=== PATIENT | female | born 1945 | race Hispanic/Latino ===

== ENCOUNTER → 2019-04-01 | Outpatient (CLI) | payer OTHER ==
[~2019-04-01] MED LIST: DIAZ5TAB4 PO; LEVO50 PO; LISI10TA7 PO; TRAM50TA4 PO
== END | disposition home or self-care (01) ==
LOC: RAH 10:13
PROVIDERS: ATTEND Internal Medicine
DX: M25.552 Pain in left hip (principal)
CPT/HCPCS: 73502

== ENCOUNTER 2023-02-07 12:37 | Emergency (ER) | payer OTHER ==
[~2023-02-07] VITALS: Ht 154.9 cm; Wt 56.7 kg
[~2023-02-07 12:37] MED LIST changes: -ONDA4TAB10 PO
[2023-02-07] MEDS ORDERED: ONDANSETRON 4MG INJ IVP ONE (13:00)
[2023-02-07] MEDS ORDERED: 0.9%NACL 1000ML 1,000 ML IV ONE (13:00)
[2023-02-07 13:47] LABS: APPEARANCE,URINE CLEAR (CLEAR); BILIRUBIN,URINE NEGATIVE (NEGATIVE); COLOR,URINE COLORLESS (YELLOW); GLUCOSE, URINE (UA) NEGATIVE (NEGATIVE); KETONES,URINE NEGATIVE (NEGATIVE); LEUKOCYTE ESTERASE ,URINE NEGATIVE Leu/uL (NEGATIVE); NITRATE,URINE NEGATIVE (NEGATIVE); OCCULT BLOOD,URINE LARGE (NEGATIVE); PROTEIN,URINE NEGATIVE (NEGATIVE); UROBILINOGEN,URINE 0.2 mg/dL (0.2-1.0)
[2023-02-07 13:53] LABS: BASOPHILS % (AUTO) 0.4 % (0.0-5.0); EOSINOPHILS % (AUTO) 1.3 % (0.0-8.0); HEMATOCRIT 42.1 % (36-48); LYMPHOCYTES % (AUTO) 13.1 % (21.0-51.0); MEAN CORPUSCULAR HEMOGLOBIN 30.7 pg (27.0-33.0); MEAN CORPUSCULAR HGB CONC 34.2 g/dL (32.0-36.0); MEAN CORPUSCULAR VOLUME 89.8 fL (79-99); MONOCYTES % (AUTO) 3.8 % (3.0-13.0); PLATELET COUNT (AUTO) 175 K/uL (130-400); RED BLOOD CELL COUNT(AUTO) 4.69 MIL/uL (4.00-5.50); RED CELL DISTRIBUTION WIDTH 12.7 % (11.0-15.5); WHITE BLOOD COUNT (AUTO) 9.3 K/uL (4.8-10.8)
[2023-02-07 14:04] LABS: CREATININE 0.8 mg/dL (0.5-1.5); POTASSIUM 3.5 mmol/L (3.5-5.1)
[2023-02-07 14:09] LABS: MUCUS,URINE RARE LPF (None Seen); SQUAMOUS EPITHELIAL CELL,UR RARE /HPF (0-2)
[2023-02-07 14:16] LABS: THYROID STIMULATING HORMONE 2.26 uIU/mL (0.36-3.74); TOTAL PROTEIN, SERUM 7.3 g/dL (6.0-8.3)
[2023-02-07 14:34] VITALS: BP 153/67
[2023-02-07] MEDS ORDERED: ONDA4TAB10 PO (14:47)
== END 2023-02-07 15:18 | disposition home or self-care (01) ==
LOC: EDH 12:37
DX: R11.2 Nausea with vomiting, unspecified (principal); E86.0 Dehydration; I10 Essential (primary) hypertension; Z88.8 Allergy status to other drugs, medicaments and biological substances; Z79.899 Other long term (current) drug therapy
CPT/HCPCS: 99285; 96374; 71045; 96361; 82150; 84443; 84484; 80053; 83690; 85025; 81001; 36415; 76536; 93005; J7030; J2405

== ENCOUNTER → 2023-02-07 | Outpatient (CLI) | payer OTHER ==
[~2023-02-07] MED LIST changes: +LISI10TA24 PO; -LISI10TA7 PO; +ONDA4TAB10 PO
== END | disposition home or self-care (01) ==
LOC: RAH 10:36
PROVIDERS: ATTEND Internal Medicine
DX: E03.9 Hypothyroidism, unspecified (principal); R09.89 Other specified symptoms and signs involving the circulatory and respiratory systems; R07.0 Pain in throat
CPT/HCPCS: 76536

== ENCOUNTER → 2023-03-05 | Outpatient (CLI) | payer OTHER ==
[~2023-03-05] MED LIST changes: +ONDA4TAB10 PO
== END | disposition home or self-care (01) ==
LOC: RAH 07:53
PROVIDERS: ATTEND Internal Medicine
DX: K22.2 Esophageal obstruction (principal); R13.10 Dysphagia, unspecified
CPT/HCPCS: 74230; 92611

== ENCOUNTER → 2023-04-26 | Outpatient (CLI) | payer OTHER ==
[~2023-04-26] MED LIST changes: +IOHEXOL-350 50ML VIAL IV ONE
== END | disposition home or self-care (01) ==
LOC: RAH 10:26
PROVIDERS: ATTEND Internal Medicine
DX: I67.82 Cerebral ischemia (principal); G45.9 Transient cerebral ischemic attack, unspecified
CPT/HCPCS: 70470; Q9967

== ENCOUNTER → 2023-05-04 | Outpatient (CLI) | payer OTHER ==
[~2023-05-04] MED LIST changes: -IOHEXOL-350 50ML VIAL IV ONE
[2023-05-04 12:42] LABS: ALBUMIN 3.8 g/dL (3.5-5.0); CREATININE 0.9 mg/dL (0.5-1.5); POTASSIUM 4.2 mmol/L (3.5-5.1); TOTAL PROTEIN, SERUM 7.2 g/dL (6.0-8.3)
== END | disposition home or self-care (01) ==
LOC: LAB 08:09
PROVIDERS: ATTEND Student in an Organized Health Care Education/Training Program
DX: I45.10 Unspecified right bundle-branch block (principal)
CPT/HCPCS: 36415; 80053

== ENCOUNTER → 2023-05-08 | Outpatient (CLI) | payer OTHER ==
[~2023-05-08] MED LIST changes: +IOHEXOL-350 75 ML VIAL IV ONE
== END | disposition home or self-care (01) ==
LOC: RAH 08:02
PROVIDERS: ATTEND Student in an Organized Health Care Education/Training Program
DX: I65.23 Occlusion and stenosis of bilateral carotid arteries (principal)
CPT/HCPCS: 70498; Q9967

== ENCOUNTER → 2023-05-31 | Outpatient (CLI) | payer OTHER ==
[~2023-05-31] MED LIST changes: -IOHEXOL-350 75 ML VIAL IV ONE
[2023-05-31 12:45] LABS: CREATININE 0.9 mg/dL (0.5-1.5); POTASSIUM 4.1 mmol/L (3.5-5.1)
== END | disposition home or self-care (01) ==
LOC: LAB 09:46
PROVIDERS: ATTEND Student in an Organized Health Care Education/Training Program
DX: R07.9 Chest pain, unspecified (principal)
CPT/HCPCS: 36415; 80048

== ENCOUNTER → 2023-06-07 | Outpatient (CLI) | payer OTHER ==
[~2023-06-07] MED LIST changes: +IOHEXOL 350 MG/ML 100ML INFUS..BTL IV ONE; +METOPROLOL TARTRATE 1 MG/ML 5ML VIAL IV ONE
== END | disposition home or self-care (01) ==
LOC: RAH 09:34
PROVIDERS: ATTEND Student in an Organized Health Care Education/Training Program
DX: R07.9 Chest pain, unspecified (principal)
CPT/HCPCS: 75574; J3490; Q9967

== ENCOUNTER → 2023-08-31 | Outpatient (CLI) | payer OTHER ==
[~2023-08-31] MED LIST changes: +ALBU0.63 IH; +AMLO-257 PO; +ASPI-1197 PO; +ATOR10TA69 PO; +BUSP5TAB3 PO; +CLOP75TA32 PO; -DIAZ5TAB4 PO; +DIPH25TA18 PO; -IOHEXOL 350 MG/ML 100ML INFUS..BTL IV ONE; -LISI10TA24 PO; +LORA10TA7 PO; +LOSA50TA64 PO; -METOPROLOL TARTRATE 1 MG/ML 5ML VIAL IV ONE; -ONDA4TAB10 PO; +PANT20TA18 PO; +PRED20TA3 PO; -TRAM50TA4 PO
== END | disposition home or self-care (01) ==
LOC: RAH 09:16
PROVIDERS: ATTEND Internal Medicine
DX: N20.0 Calculus of kidney (principal); M47.815 Spondylosis without myelopathy or radiculopathy, thoracolumbar region; R31.29 Other microscopic hematuria; R94.4 Abnormal results of kidney function studies; E27.8 Other specified disorders of adrenal gland; N13.30 Unspecified hydronephrosis; I70.0 Atherosclerosis of aorta
CPT/HCPCS: 74176

== ENCOUNTER 2023-10-18 07:49 | Day surgery (SDC) | payer OTHER ==
[2023-10-15 11:18] VITALS: BP 176/89; PULSE 61; RESP 16
[2023-10-15 11:39] LABS: BASOPHILS # (AUTO) 0.05 K/uL (0.00-0.20); BASOPHILS % (AUTO) 0.8 % (0.0-5.0); EOSINOPHILS # (AUTO) 0.49 K/uL (0.00-0.70); EOSINOPHILS % (AUTO) 7.4 % (0.0-8.0); HEMATOCRIT 43.5 % (36-48); IMMATURE GRANULOCYTE ABSOLUTE 0.02 K/uL (0-1); LYMPHOCYTES # (AUTO) 1.7 K/uL (1.0-4.8); LYMPHOCYTES % (AUTO) 25.2 % (21.0-51.0); MEAN CORPUSCULAR HEMOGLOBIN 30.8 pg (27.0-33.0); MEAN CORPUSCULAR HGB CONC 33.6 g/dL (32.0-36.0); MEAN CORPUSCULAR VOLUME 91.8 fL (79-99); MONOCYTES # (AUTO) 0.6 K/uL (0.1-1.0); MONOCYTES % (AUTO) 9.4 % (3.0-13.0); NEUTROPHILS # (AUTO) 3.8 K/uL (1.8-7.7); NEUTROPHILS % (AUTO) 56.9 % (40.0-77.0); PLATELET COUNT (AUTO) 177 K/uL (130-400); RED BLOOD CELL COUNT(AUTO) 4.74 MIL/uL (4.00-5.50); RED CELL DISTRIBUTION WIDTH 12.3 % (11.0-15.5); WHITE BLOOD COUNT (AUTO) 6.6 K/uL (4.8-10.8)
[2023-10-15 11:58] LABS: CREATININE 0.8 mg/dL (0.5-1.5)
[2023-10-15 12:00] LABS: INR < 0.93 (0.85-1.15); PROTHROMBIN TIME 10.7 SEC (9.6-11.6)
[2023-10-15 12:02] LABS: PARTIAL THROMBOPLASTIN TIME 28.8 SEC (26.3-35.5)
[2023-10-15 12:54] LABS: APPEARANCE,URINE CLOUDY (CLEAR); BILIRUBIN,URINE NEGATIVE (NEGATIVE); COLOR,URINE YELLOW (YELLOW); GLUCOSE, URINE (UA) NEGATIVE (NEGATIVE); KETONES,URINE NEGATIVE (NEGATIVE); LEUKOCYTE ESTERASE ,URINE 250 Leu/uL (NEGATIVE); NITRATE,URINE NEGATIVE (NEGATIVE); OCCULT BLOOD,URINE LARGE (NEGATIVE); PROTEIN,URINE 50 mg/dL (NEGATIVE); UROBILINOGEN,URINE 0.2 mg/dL (0.2-1.0)
[2023-10-15 12:55] LABS: ADD UA MICROSCOPIC YES
[2023-10-15 13:10] LABS: MUCUS,URINE RARE LPF (None Seen); NON-SQUAMOUS EPITHELIAL CELL 4 /HPF (0-2); RBC,URINE TNTC /HPF (0-1); SQUAMOUS EPITHELIAL CELL,UR FEW /HPF (0-2); WBC,URINE 26-50 /HPF (0-1)
[2023-10-18] VITALS (16 sets, daily range): BP systolic 127–162; BP diastolic 55–83; PULSE 67–79; RESP 14–17
[~2023-10-18] VITALS: Ht 154.9 cm; Wt 55.6 kg
[~2023-10-18 07:49] MED LIST changes: -DIPH25TA18 PO; +FLUT1BLS3 IH; -PRED20TA3 PO
[2023-10-18] MEDS ORDERED: IOHEXOL-350 50ML VIAL IV ONE (08:15)
[2023-10-18] MEDS ORDERED: LACTATED RINGERS 1000ML 1,000 ML IV ONE (08:28)
[2023-10-18] MEDS: CEFTRIAXONE 1G VIAL ONE ×2 (08:51→09:29)
[2023-10-18] MEDS ORDERED: DEXAMETHASONE SOD PHOSPHATE 10MG/ML 1ML VIAL ONE (09:28)
[2023-10-18] MEDS ORDERED: LIDOCAINE PF 100MG/5ML (2%) SYRINGE 5ML ONE ×2 (09:28→09:30)
[2023-10-18] MEDS ORDERED: SUCCINYLCHOLINE 200MG/10ML SYR ONE (09:28)
[2023-10-18] MEDS ORDERED: PROPOFOL 10 MG/ML 20ML VIAL IV ONE (09:29)
[2023-10-18] MEDS ORDERED: GLYCOPYRROLATE 1 MG/5 ML SYRINGE ONE (09:29)
[2023-10-18] MEDS ORDERED: ROCURONIUM 10MG/1ML SYR 10 MG/ML ML ONE (09:29)
[2023-10-18] MEDS ORDERED: NEOSTIGMINE 5MG/5ML SYR IV ONE (09:29)
[2023-10-18] MEDS ORDERED: METOPROLOL TARTRATE 1 MG/ML 5ML VIAL IV ONE (09:36)
[2023-10-18] MEDS ORDERED: FENTANYL CITRATE PF 50 MCG/1 ML 2ML VIAL ONE (09:39)
== END 2023-10-18 13:10 | disposition home or self-care (01) ==
LOC: DAH 07:49
PROVIDERS: ATTEND Urology
DX: N20.0 Calculus of kidney (principal); I10 Essential (primary) hypertension; E03.9 Hypothyroidism, unspecified; F32.A Depression, unspecified; I45.10 Unspecified right bundle-branch block; I49.1 Atrial premature depolarization; Z90.49 Acquired absence of other specified parts of digestive tract; Z98.890 Other specified postprocedural states; Z79.01 Long term (current) use of anticoagulants; Z90.5 Acquired absence of kidney
CPT/HCPCS: 80048; 85025; 85610; 85730; 87088; 81001; 36415; 74018; 71045; 93005; 52356; 74420; A6260; A4663; J7120 ×2; C1758; C1894; C2617; J3010; J3490 ×2; J0330; J1100; J2710; J2001 ×2; J0696; J2704; Q9967; A6204; A4358; C1769 ×3; A4930; A4215; A4223; A4222; A4221; A4600

== ENCOUNTER → 2024-02-11 | Outpatient (CLI) | payer OTHER ==
[~2024-02-11] MED LIST changes: +FLUT9.9S16 NS; +LEVO750T68 PO; +PANT40TA PO
[2024-02-11 12:33] LABS: HEMOGLOBIN A1C 5.7 % (4.0-6.0)
[2024-02-11 12:39] LABS: CHOLESTEROL 155 mg/dL (<200); HDL CHOLESTEROL 45 mg/dL (35-85); LDL DIRECT 93 mg/dL (0-99); TRIGLYCERIDES 140 mg/dL (30-200)
== END | disposition home or self-care (01) ==
LOC: LAB 08:02
PROVIDERS: ATTEND Student in an Organized Health Care Education/Training Program
DX: I10 Essential (primary) hypertension (principal); I65.23 Occlusion and stenosis of bilateral carotid arteries; Z79.899 Other long term (current) drug therapy
CPT/HCPCS: 36415; 80061; 83036

== ENCOUNTER 2024-04-04 19:31 | Observation (INO) | payer OTHER ==
[~2024-04-04] VITALS: Ht 154.9 cm; Wt 56.6 kg
[~2024-04-04 19:31] MED LIST changes: -FLUT9.9S16 NS; -LEVO750T68 PO; -PANT40TA PO
[2024-04-04] MEDS ORDERED: BUSP5TAB3 PO (19:47)
[2024-04-04] MEDS: FAMOTIDINE 20MG VIAL IV ONE (19:57)
[2024-04-04] MEDS: ONDANSETRON 4MG INJ IVP ONE (19:57)
[2024-04-04 20:08] LABS: BASOPHILS # (AUTO) 0.05 K/uL (0.00-0.20); BASOPHILS % (AUTO) 0.6 % (0.0-5.0); EOSINOPHILS # (AUTO) 0.36 K/uL (0.00-0.70); EOSINOPHILS % (AUTO) 4.1 % (0.0-8.0); HEMATOCRIT 41.5 % (36-48); IMMATURE GRANULOCYTE ABSOLUTE 0.03 K/uL (0-1); LYMPHOCYTES # (AUTO) 1.8 K/uL (1.0-4.8); LYMPHOCYTES % (AUTO) 20.9 % (21.0-51.0); MEAN CORPUSCULAR HEMOGLOBIN 30.1 pg (27.0-33.0); MEAN CORPUSCULAR HGB CONC 34.9 g/dL (32.0-36.0); MEAN CORPUSCULAR VOLUME 86.1 fL (79-99); MONOCYTES # (AUTO) 0.5 K/uL (0.1-1.0); MONOCYTES % (AUTO) 5.6 % (3.0-13.0); NEUTROPHILS % (AUTO) 68.5 % (40.0-77.0); PLATELET COUNT (AUTO) 173 K/uL (130-400); RED BLOOD CELL COUNT(AUTO) 4.82 MIL/uL (4.00-5.50); RED CELL DISTRIBUTION WIDTH 12.5 % (11.0-15.5); WHITE BLOOD COUNT (AUTO) 8.7 K/uL (4.8-10.8)
[2024-04-04 20:17] LABS: INR <= 0.93 (0.85-1.15); PROTHROMBIN TIME 10.2 SEC (9.6-11.6)
[2024-04-04 20:19] LABS: PARTIAL THROMBOPLASTIN TIME 24.2 SEC (26.3-35.5)
[2024-04-04] MEDS: 0.9%NACL 1000ML 1,000 ML IV ONE (20:26)
[2024-04-04 20:30] LABS: BILIRUBIN,TOTAL 0.3 mg/dL (0.2-1.0); CREATININE 0.9 mg/dL (0.5-1.0); POTASSIUM 3.3 mmol/L (3.5-5.1)
[2024-04-04] MEDS: HYDRALAZINE 20MG/ML VIAL IV ONE (20:44)
[2024-04-04 20:48] LABS: APPEARANCE,URINE CLEAR (CLEAR); BACTERIA,URINE RARE /HPF (None Seen); BILIRUBIN,URINE NEGATIVE (NEGATIVE); COLOR,URINE COLORLESS (YELLOW); GLUCOSE, URINE (UA) NEGATIVE (NEGATIVE); KETONES,URINE NEGATIVE (NEGATIVE); LEUKOCYTE ESTERASE ,URINE 75 Leu/uL (NEGATIVE); MUCUS,URINE RARE LPF (None Seen); NITRATE,URINE NEGATIVE (NEGATIVE); OCCULT BLOOD,URINE NEGATIVE (NEGATIVE); PH,URINE 6.5 (5.0-8.0); PROTEIN,URINE 10 mg/dL (NEGATIVE); SQUAMOUS EPITHELIAL CELL,UR RARE /HPF (0-2); UROBILINOGEN,URINE 0.2 mg/dL (0.2-1.0)
[2024-04-04] MEDS: AZTREONAM 1 GM VIAL IVPB SCH (21:51)
[2024-04-04 23:25] VITALS: PULSE 87; RESP 19; O2SAT 98
[2024-04-04] MEDS ORDERED: ACETAMINOPHEN 650 MG SUPPOSITORY RC PRN (23:30)
[2024-04-04] MEDS ORDERED: ALBUTEROL 0.083% 2.5 MG/3 ML INH IH PRN (23:30)
[2024-04-04] MEDS ORDERED: ONDANSETRON 4MG INJ IVP PRN (23:30)
[2024-04-04] MEDS ORDERED: HYDRALAZINE 20MG/ML VIAL IV PRN (23:30)
[2024-04-04] MEDS: LACTATED RINGERS 1000ML 1,000 ML IV SCH (23:35)
[2024-04-05] VITALS (12 sets, daily range): BP systolic 134–175; BP diastolic 61–88; PULSE 75–98; RESP 18–21; O2SAT 90–98
[2024-04-05] MEDS ORDERED: FLUT9.9S16 NS (01:07)
[2024-04-05] MEDS: ACETAMINOPHEN 325 MG TAB PO PRN (01:47)
[2024-04-05 05:47] LABS: BASOPHILS # (AUTO) 0.04 K/uL (0.00-0.20); BASOPHILS % (AUTO) 0.5 % (0.0-5.0); EOSINOPHILS # (AUTO) 0.19 K/uL (0.00-0.70); EOSINOPHILS % (AUTO) 2.2 % (0.0-8.0); HEMATOCRIT 39.5 % (36-48); IMMATURE GRANULOCYTE ABSOLUTE 0.03 K/uL (0-1); LYMPHOCYTES # (AUTO) 2.1 K/uL (1.0-4.8); LYMPHOCYTES % (AUTO) 24.8 % (21.0-51.0); MEAN CORPUSCULAR HEMOGLOBIN 30.2 pg (27.0-33.0); MEAN CORPUSCULAR HGB CONC 34.9 g/dL (32.0-36.0); MEAN CORPUSCULAR VOLUME 86.4 fL (79-99); MONOCYTES # (AUTO) 0.6 K/uL (0.1-1.0); MONOCYTES % (AUTO) 7.5 % (3.0-13.0); NEUTROPHILS # (AUTO) 5.5 K/uL (1.8-7.7); NEUTROPHILS % (AUTO) 64.6 % (40.0-77.0); PLATELET COUNT (AUTO) 162 K/uL (130-400); RED BLOOD CELL COUNT(AUTO) 4.57 MIL/uL (4.00-5.50); RED CELL DISTRIBUTION WIDTH 12.6 % (11.0-15.5); WHITE BLOOD COUNT (AUTO) 8.5 K/uL (4.8-10.8)
[2024-04-05 06:20] LABS: CREATININE 0.9 mg/dL (0.5-1.0); POTASSIUM 3.7 mmol/L (3.5-5.1)
[2024-04-05] MEDS: DOCUSATE SODIUM 100 MG CAP PO SCH (09:26)
[2024-04-05] MEDS: FAMOTIDINE 20MG TAB PO SCH (09:26)
[2024-04-05] MEDS: ENOXAPARIN SODIUM 40 MG/0.4 ML SYRINGE SQ SCH (09:27)
[2024-04-05] MEDS: LEVOFLOXACIN 750 MG/D5W 150ML BAG IV SCH (09:27)
[2024-04-05] MEDS ORDERED: LORATADINE 10 MG TABLET PO PRN (17:30)
[2024-04-05] MEDS: LOSARTAN 50 MG TABLET PO ONE (17:53)
[2024-04-05] MEDS: AMLODIPINE 5 MG TAB PO ONE (17:53)
[2024-04-05] MEDS ORDERED: ALBUTEROL 0.042% 1.25MG/3ML IH PRN (18:00)
[2024-04-05] MEDS ORDERED: (Fluticasone/Umeclidin/Vilanter (Trelegy Ellipta 100-62.5- IH PRN (18:00)
[2024-04-05] MEDS: LOSARTAN 50 MG TABLET PO SCH (20:20)
[2024-04-05] MEDS: ATORVASTATIN 10 MG TABLET PO SCH (20:20)
[2024-04-05] MEDS: BUSPIRONE HCL 5 MG TABLET PO SCH (20:21)
[2024-04-05] MEDS: ASPIRIN 81MG CHEW TAB PO SCH (20:21)
[2024-04-05] MEDS: FLUTICASONE FUROATE NASAL SCH (20:22)
[2024-04-06] VITALS: BP 147/72; PULSE 83; RESP 18
[2024-04-06 04:00] VITALS: BP 150/65; PULSE 77; RESP 17
[2024-04-06 05:45] LABS: BASOPHILS # (AUTO) 0.04 K/uL (0.00-0.20); BASOPHILS % (AUTO) 0.5 % (0.0-5.0); EOSINOPHILS # (AUTO) 0.37 K/uL (0.00-0.70); HEMATOCRIT 37.4 % (36-48); IMMATURE GRANULOCYTE ABSOLUTE 0.02 K/uL (0-1); LYMPHOCYTES # (AUTO) 2.3 K/uL (1.0-4.8); LYMPHOCYTES % (AUTO) 31.1 % (21.0-51.0); MEAN CORPUSCULAR HEMOGLOBIN 30.4 pg (27.0-33.0); MEAN CORPUSCULAR HGB CONC 34.5 g/dL (32.0-36.0); MONOCYTES # (AUTO) 0.6 K/uL (0.1-1.0); MONOCYTES % (AUTO) 8.1 % (3.0-13.0); NEUTROPHILS # (AUTO) 4.1 K/uL (1.8-7.7); PLATELET COUNT (AUTO) 169 K/uL (130-400); RED BLOOD CELL COUNT(AUTO) 4.25 MIL/uL (4.00-5.50); RED CELL DISTRIBUTION WIDTH 12.8 % (11.0-15.5); WHITE BLOOD COUNT (AUTO) 7.4 K/uL (4.8-10.8)
[2024-04-06] MEDS: LEVOTHYROXINE 25 MCG TABLET PO SCH (05:45)
[2024-04-06 06:02] LABS: CREATININE 0.9 mg/dL (0.5-1.0); POTASSIUM 3.8 mmol/L (3.5-5.1)
[2024-04-06] MEDS ORDERED: PANT40TA PO (06:59)
[2024-04-06] MEDS ORDERED: LEVO750T68 PO (06:59)
[2024-04-06 07:22] VITALS: PULSE 79; RESP 19; O2SAT 96
[2024-04-06 08:08] VITALS: BP 167/82; PULSE 68; RESP 18
[2024-04-06 09:00] VITALS: O2SAT 99
[2024-04-06] MEDS: PANTOPRAZOLE 40 MG TAB DR PO SCH (09:00)
[2024-04-06] MEDS ORDERED: NON-FORMULARY MEDICATION 1 EACH (Pantoprazole Sodium 20 MG) PO SCH (09:00)
[2024-04-06 10:30] VITALS: BP 132/59; PULSE 78; RESP 17
[2024-04-06] MEDS ORDERED: AMLODIPINE 5 MG TAB PO SCH (12:00)
== END 2024-04-06 11:07 | disposition home or self-care (01) ==
LOC: EDH 19:31 → EDHIP 23:04 → 3BH 04-05 00:33
PROVIDERS: ADMIT Internal Medicine Critical Care Medicine; ATTEND Internal Medicine Critical Care Medicine
DX: A41.9 Sepsis, unspecified organism (principal); N30.00 Acute cystitis without hematuria; R73.9 Hyperglycemia, unspecified; E87.6 Hypokalemia; E87.20 Acidosis, unspecified; E78.5 Hyperlipidemia, unspecified; R11.2 Nausea with vomiting, unspecified; I25.10 Atherosclerotic heart disease of native coronary artery without angina pectoris; I10 Essential (primary) hypertension; Z86.73 Personal history of transient ischemic attack (TIA), and cerebral infarction without residual deficits; Z88.5 Allergy status to narcotic agent; Z88.8 Allergy status to other drugs, medicaments and biological substances; Z85.528 Personal history of other malignant neoplasm of kidney; Z90.49 Acquired absence of other specified parts of digestive tract
CPT/HCPCS: 96361 ×5; 96365; 96375; 99285; 84484; 80053; 83690; 85025 ×3; 85610; 85730; 87088; 83605 ×2; 81001 ×2; 36415 ×3; 71045; 70450; 74176; 93005; 94664; 84145 ×2; 96372 ×2; 96366 ×2; 96367; 80048 ×2; 82948 ×6; 97161; 97116; 97530 ×2; G0378 ×35; J3490 ×2; J7030; J0360; J2405; J7120; J1956 ×2; J1650 ×2; G8980-CI; G8983-CI

== ENCOUNTER → 2024-06-17 | Outpatient (CLI) | payer OTHER ==
[~2024-06-17] MED LIST changes: -CLOP75TA32 PO; +FLUT9.9S16 NS; +LEVO750T68 PO; +PANT40TA PO
== END | disposition home or self-care (01) ==
LOC: RAH 09:59
PROVIDERS: ATTEND Internal Medicine
DX: M85.89 Other specified disorders of bone density and structure, multiple sites (principal); Z78.0 Asymptomatic menopausal state
CPT/HCPCS: 77080

== ENCOUNTER → 2024-09-18 | Outpatient (CLI) | payer OTHER ==
[2024-09-18 12:36] LABS: HEMOGLOBIN A1C 5.6 % (4.0-6.0)
[2024-09-18 12:47] LABS: ALBUMIN 3.8 g/dL (3.5-5.0); BILIRUBIN,TOTAL 0.4 mg/dL (0.2-1.0); CREATININE 0.9 mg/dL (0.5-1.0); POTASSIUM 4.1 mmol/L (3.5-5.1); TOTAL PROTEIN, SERUM 6.7 g/dL (6.0-8.3)
== END | disposition home or self-care (01) ==
LOC: LAB 08:15
PROVIDERS: ATTEND Student in an Organized Health Care Education/Training Program
DX: E78.5 Hyperlipidemia, unspecified (principal); I65.23 Occlusion and stenosis of bilateral carotid arteries; Z79.899 Other long term (current) drug therapy
CPT/HCPCS: 36415; 80053; 80061; 83036

== ENCOUNTER 2024-10-31 20:28 | Emergency (ER) | payer OTHER ==
[~2024-10-31] VITALS: Ht 152.4 cm; Wt 56.7 kg
--- NOTE | 2024-10-31 20:43 | ERN ---
ED Note History of Present Illness Stated Complaint: GBW, DIZZINESS X 2 1/2 HOURS Chief Complaint: Dizzy/Light Headed Time Seen by MD: 20:30 Dictation: Patient is a 79-year-old female with past medical hypertension who was brought to the ER due to dizziness, nausea, weakness. As per EMS the patient states that her blood pressure was 200 systolic, but during the arrival of EMS BP systolic was 160. During my evaluation the patient stated that she was having nausea, and feeling dizzy which started while she was driving home. She denies fever or chills. Stated that she with a takes losartan in the evening, she missed her evening dose. Allergies: Coded Allergies: naproxen (Unverified Allergy, Severe, HALLUCINATES, 05/21/13) niacin (Unverified Allergy, Severe, WELTS,RED AND HOT, 05/21/13) cephalexin (Unverified Allergy, Unknown, UNKNOWN, 08/02/23) iodine (Unverified Allergy, Unknown, 08/02/23) metoprolol (Unverified Allergy, Unknown, 08/02/23) codeine (Unverified Adverse Reaction, Unknown, NAUSEA & VOMITING, 08/06/23) Home Meds Active Scripts Levofloxacin (Levaquin 750Mg Tabs) 750 Mg Tablet, 750 MG PO DAILY, #5 TAB 0 Refills Prov:SHAUNA LIU [facility] 04/06/24 Pantoprazole Sodium (Protonix) 40 Mg Tablet.dr, 40 MG PO DAILY, #30 TAB 0 Refills Prov:SHAUNA LIU [facility] 04/06/24 Reported Medications Fluticasone Furoate (Flonase Sensimist) 27.5 Mcg/Actuation [place].susp, 1 SPRAY NS HS 04/05/24 Buspirone HCl (Buspirone HCl) 5 Mg Tablet, 2.5 MG PO TID, TAB 04/04/24 Fluticasone/Umeclidin/Vilanter (Trelegy Ellipta 100-62.5-25) 100-62.5 Blst.w.dev, 1 PUFF IH DAILY PRN for SHORTNESS OF BREATH 10/17/23 Aspirin (Aspirin) 81 Mg Tab.chew, 81 MG PO HS, TAB.CHEW 08/02/23 Albuterol Sulfate (Albuterol Sulfate) 0.63 Mg/3 Ml Vial.neb, 0.63 MG IH AD PRN for SHORTNESS OF BREATH/WHEEZING, INH 08/02/23 Pantoprazole Sodium (Pantoprazole Sodium) 20 Mg Tablet.dr, 20 MG PO DAILY, TAB 08/02/23 Loratadine (Loratadine) 10 Mg Tablet, 10 MG PO AD PRN for ALLERGIES, TAB 08/02/23 Atorvastatin Calcium (Atorvastatin Calcium) 10 Mg Tablet, 10 MG PO HS, TAB 08/02/23 Amlodipine Besylate (Amlodipine Besylate) 5 Mg Tablet, 5 MG PO NOON, TAB 08/02/23 Losartan Potassium (Losartan Potassium) 50 Mg Tablet, 50 MG PO BID, TAB 08/02/23 Levothyroxine Sodium (Levothroid/Synthroid) 50 Mcg Tab, 25 MCG PO AM, TAB 07/12/15 Past Medical History Past Medical History: CAD, Hypertension Additional Past Medical Hx: RENAL CA. Surgical History: Appendectomy, Other Surgical History Other: TCAR;ESOPHAGEAL DILATION Social History: Negative Review of System Dictation NEGATIVE EXCEPT PER HPI Constitutional: Negative for fever,chills, and weight loss Eyes: Negative for injury, pain,redness, and discharge ENT: Negative for injury,pain or swelling Cardiovascular: denies chest pain, palpitations, and edema Respiratory: Negative for shortness of breath, cough, and wheezing, Abdomen/GI: Negative for abdominal pain, nausea, vomiting, diarrhea, and constipation Back: Negative for injury and pain : Negative for injury, bleeding and discharge MS/Extremity: Negative for injury and deformity Skin: Negative for rash, and discoloration Neuro: Report dizziness Psych: Negative for suicide ideation, homicidal ideation, and hallucinations Initial Vital Sign VS Vital Signs Date Time Temp Pulse Resp B/P (MAP) Pulse Ox O2 Delivery O2 Flow Rate FiO2 10/31/24 20:32 98.6 84 16 138/94 96 Room Air* 0 21 Physical Exam Dictation General: awake, alert, NAD Head/Face: Normocephalic, atraumatic Eyes: PERRL, EOMI, vision at baseline ENT: oral cavity clear, TMs clear, no signs of infection Neck: Trachea midline, supple, no nuchal rigidity Cardiovascular: RRR, normal S1/S2, No MRGs, no JVD Respiratory: CTAB, no respiratory distress, No rales or wheezes Abdomen: Soft , no tender Skin: Warm, dry, normal turgor, no rash MS/Extremity: Pulses equal, no cyanosis, neurovascular intact, FROM Neuro: COAx4, GCS 15, strength 5/5, CN 2-12 intact, normal cerebellar exam, normal gait, Psych: Normal behavior, mood, and affect normal Results (Laboratory/Radiology) Laboratory/Radiology Laboratory Tests Test 10/31/24 20:53 10/31/24 22:15 White Blood Count 11.1 K/uL (4.8-10.8) H Red Blood Count 4.53 MIL/uL (4.00-5.50) Hemoglobin 13.9 g/dL (12.0-16.0) Hematocrit 39.6 % (36-48) Mean Corpuscular Volume 87.4 fL (79-99) Mean Corpuscular Hemoglobin 30.7 pg (27.0-33.0) Mean Corpuscular Hemoglobin Concent 35.1 g/dL (32.0-36.0) Red Cell Distribution Width 12.8 % (11.0-15.5) Platelet Count 159 K/uL (130-400) Mean Platelet Volume 10.7 fL (7.5-10.5) H Immature Granulocyte % (Auto) 0.4 % (0-1) Neutrophils (%) (Auto) 73.7 % (40.0-77.0) Lymphocytes (%) (Auto) 16.2 % (21.0-51.0) L Monocytes (%) (Auto) 6.0 % (3.0-13.0) Eosinophils (%) (Auto) 3.1 % (0.0-8.0) Basophils (%) (Auto) 0.6 % (0.0-5.0) Neutrophils # (Auto) 8.2 K/uL (1.8-7.7) H Lymphocytes # (Auto) 1.8 K/uL (1.0-4.8) Monocytes # (Auto) 0.7 K/uL (0.1-1.0) Eosinophils # (Auto) 0.35 K/uL (0.00-0.70) Basophils # (Auto) 0.07 K/uL (0.00-0.20) Absolute Immature Granulocyte (auto 0.05 K/uL (0-1) Nucleated Red Blood Cells 0.0 % (0.0-0.19) Sodium Level 139 mmol/L (136-145) Potassium Level 3.8 mmol/L (3.5-5.1) Chloride Level 103 mmol/L (101-111) Carbon Dioxide Level 30 mmol/L (21-32) Blood Urea Nitrogen 22 mg/dL (7-18) H Creatinine 0.9 mg/dL (0.5-1.0) Glomerular Filtration Rate Calc 64 mL/min (>90) Random Glucose 126 mg/dL (70-105) H Total Calcium 9.4 mg/dL (8.5-10.1) Urine Color COLORLESS (YELLOW) Urine Appearance CLEAR (CLEAR) Urine pH 6.5 (5.0-8.0) Urine Specific [place] 1.009 (1.001-1.031) Urine Protein NEGATIVE mg/dL (NEGATIVE) Urine Glucose (UA) NEGATIVE mg/dL (NEGATIVE) Urine Ketones NEGATIVE mg/dL (NEGATIVE) Urine Occult Blood NEGATIVE (NEGATIVE) Urine Nitrate NEGATIVE (NEGATIVE) Urine Bilirubin NEGATIVE mg/dL (NEGATIVE) Urine Urobilinogen 0.2 mg/dL (0.2-1.0) Urine Leukocyte Esterase NEGATIVE Marylou/uL ED Course ED Course Orders Procedure Category Date Status Time Cbc With Differential LAB 10/31/24 Complete 20:32 Basic Metabolic Panel LAB 10/31/24 Complete 20:32 Urinalysis Profile LAB 10/31/24 Complete 20:32 Ondansetron 4mg Inj PHA 10/31/24 Complete (Zofran 4mg Inj) 21:00 Hydralazine 20mg Inj PHA 10/31/24 Complete (Apresoline 20mg In 21:00 Losartan 50 Mg Tablet PHA 10/31/24 Complete (Cozaar 50 Mg Tab) 22:30 Acetaminophen 500mg PHA 10/31/24 Complete Tab (Tylenol 500mg T 23:30 Current Medications Medications (Trade) Dose Ordered Sig/Jessie Route PRN Reason Start Time Stop Time Status Last Admin Dose Admin Acetaminophen (TYLenol 500MG TAB) 500 mg ONCE ONCE PO 10/31/24 23:30 10/31/24 23:31 DC 10/31/24 23:30 Hydralazine HCl (APRESOLine 20MG INJ) 10 mg ONCE ONCE IV 10/31/24 21:00 10/31/24 21:01 DC Losartan Potassium (CozAAR 50 mg TAB) 50 mg ONCE ONCE PO 10/31/24 22:30 10/31/24 22:31 DC 10/31/24 23:01 Ondansetron HCl (zoFRAN 4MG INJ) 4 mg ONCE ONCE IVP 10/31/24 21:00 10/31/24 21:01 DC 10/31/24 20:57 Vital Signs Date Time Temp Pulse Resp B/P (MAP) Pulse Ox O2 Delivery O2 Flow Rate FiO2 10/31/24 23:08 74 18 148/70 97 Room Air* 0 21 10/31/24 22:09 79 18 145/65 97 Room Air* 0 21 10/31/24 20:39 98.4 88 20 170/76 97 Room Air* 0 21 10/31/24 20:32 98.6 84 16 138/94 96 Room Air 0 10/31/24 20:32 98.6 84 16 138/94 96 Room Air* 0 21 Medical Decision Making MDM Patient is a 79-year-old female with past medical hypertension who was brought to the ER due to dizziness, nausea, weakness. As per EMS the patient states that her blood pressure was 200 systolic, but during the arrival of EMS BP s ystolic was 160. Rationale: Hypertensive urgency, food poison, dehydration UA, CBC, BMP Zofran 4 mg IV ordered Monitor vital signs: Initial vital signs in the ER 138/94 repeated her blood pressure was 170/76 Ordered hydralazine 10 mg IV x1, patient refusing medication, said that she has allergy for several can of medication. Prefer not taking it. Losartan 50 mg oral Laboratory was reviewed, no abnormalities. Vital signs was rechecked, there is improvement of blood pressure. Patient was re-evaluate she is doing much better blood pressure systolic in the 140s. Patient he will be discharged home, I will prescribe hydralazine p.r.n. oral for BP above 170. DX & DISP Disposition: Discharge Departure Impression: Primary Impression: Hypertensive urgency Condition: Stable Scripts Hydralazine HCl (Hydralazine HCl) 50 Mg Tablet 1 TAB PO BID for blood pressure sys above 170, #30 TAB 0 Refills Prov: EDGAR PAREKH MD 10/31/24 Additional Instructions: RETURN TO ER FOR ANY ACUTE OR WORSENING SYMPTOMS. FOLLOW-UP IN 1-2 DAYS WITH PRIMARY PROVIDER FOR RECHECK OF TODAY'S SYMPTOMS. Referrals: ROSHNI BLACK MD (PCP) EDGAR PAREKH MD Oct 31, 2024 20:43
[2024-10-31] MEDS: ondanSETRON 4MG INJ IVP ONE (20:57)
[2024-10-31 21:01] LABS: BASOPHILS # (AUTO) 0.07 K/uL (0.00-0.20); BASOPHILS % (AUTO) 0.6 % (0.0-5.0); EOSINOPHILS # (AUTO) 0.35 K/uL (0.00-0.70); EOSINOPHILS % (AUTO) 3.1 % (0.0-8.0); HEMATOCRIT 39.6 % (36-48); IMMATURE GRANULOCYTE ABSOLUTE 0.05 K/uL (0-1); LYMPHOCYTES # (AUTO) 1.8 K/uL (1.0-4.8); LYMPHOCYTES % (AUTO) 16.2 % (21.0-51.0); MEAN CORPUSCULAR HEMOGLOBIN 30.7 pg (27.0-33.0); MEAN CORPUSCULAR HGB CONC 35.1 g/dL (32.0-36.0); MEAN CORPUSCULAR VOLUME 87.4 fL (79-99); MONOCYTES # (AUTO) 0.7 K/uL (0.1-1.0); NEUTROPHILS # (AUTO) 8.2 K/uL (1.8-7.7); NEUTROPHILS % (AUTO) 73.7 % (40.0-77.0); PLATELET COUNT (AUTO) 159 K/uL (130-400); RED BLOOD CELL COUNT(AUTO) 4.53 MIL/uL (4.00-5.50); RED CELL DISTRIBUTION WIDTH 12.8 % (11.0-15.5); WHITE BLOOD COUNT (AUTO) 11.1 K/uL (4.8-10.8)
[2024-10-31 21:07] LABS: CREATININE 0.9 mg/dL (0.5-1.0); POTASSIUM 3.8 mmol/L (3.5-5.1)
--- NOTE | 2024-10-31 21:29 | NUR ---
PERSON TO CONTACT [employer] (NEIGHBOR) [phone]
[2024-10-31] MEDS: hydrALAZine 20MG/ML VIAL IV ONE (22:08)
[2024-10-31 22:27] LABS: APPEARANCE,URINE CLEAR (CLEAR); BILIRUBIN,URINE NEGATIVE (NEGATIVE); COLOR,URINE COLORLESS (YELLOW); GLUCOSE, URINE (UA) NEGATIVE (NEGATIVE); KETONES,URINE NEGATIVE (NEGATIVE); LEUKOCYTE ESTERASE ,URINE NEGATIVE Leu/uL (NEGATIVE); NITRATE,URINE NEGATIVE (NEGATIVE); OCCULT BLOOD,URINE NEGATIVE (NEGATIVE); PH,URINE 6.5 (5.0-8.0); PROTEIN,URINE NEGATIVE (NEGATIVE); UROBILINOGEN,URINE 0.2 mg/dL (0.2-1.0)
[2024-10-31 22:33] LABS: ADD UA MICROSCOPIC NO
[2024-10-31] MEDS: LoSARTan 50 MG TABLET PO ONE (23:01)
[2024-10-31] MEDS: acetaMINOPHEN 500 MG TABLET PO ONE (23:30)
[2024-10-31] MEDS ORDERED: HYDR50TA37 PO (23:49)
[2024-11-01] MEDS: LACTATED RINGERS 1000ML 1,000 ML IV ONE (00:11)
[2024-11-01] MEDS: mecliZINE HCL 25 MG TABLET PO ONE (00:24)
[2024-11-01 01:00] LABS: SARS-CoV-2, RNA, NAAT NEGATIVE SARS CoV-2 (NEGATIVE)
[2024-11-01 01:07] LABS: INFLUENZA TYPE A Negative For Type A (NEGATIVE); INFLUENZA TYPE B Negative For Type B (NEGATIVE)
[2024-11-01 01:11] LABS: RAPID GROUP A STREP negative (NEGATIVE)
--- NOTE | 2024-11-01 02:04 | NUR ---
PATIENT DISCHARGED. PENDING RIDE
--- NOTE | 2024-11-01 04:34 | NUR ---
PATIENT SLEEPING, AWAITING TRANSPORTATION HOME, NAD NOTED
[2024-11-01 06:27] VITALS: BP 160/94; PULSE 86; RESP 16; TEMP 98.4; O2SAT 96
--- NOTE | 2024-11-01 06:29 | NUR ---
PATIENTS NEIGHBOR CALLED FOR RIDE, WILL BE HERE SHORTLY
== END 2024-11-01 06:39 | disposition home or self-care (01) ==
LOC: EDH 20:28
DX: I16.0 Hypertensive urgency (principal); I10 Essential (primary) hypertension; I25.10 Atherosclerotic heart disease of native coronary artery without angina pectoris; Z20.822 Contact with and (suspected) exposure to COVID-19; Z79.82 Long term (current) use of aspirin; Z79.899 Other long term (current) drug therapy; Z88.1 Allergy status to other antibiotic agents; Z88.5 Allergy status to narcotic agent; Z88.6 Allergy status to analgesic agent; Z88.8 Allergy status to other drugs, medicaments and biological substances; Z90.49 Acquired absence of other specified parts of digestive tract; Z91.041 Radiographic dye allergy status
CPT/HCPCS: 99285; 96374; 87635; 80048; 85025; 87880; 87804 ×2; 81003; 36415; J0360; J2405; J7120

== ENCOUNTER 2024-11-05 14:08 | Emergency (ER) | payer OTHER ==
[~2024-11-05] VITALS: Ht 152.4 cm; Wt 56.7 kg
[~2024-11-05 14:08] MED LIST changes: +HYDR50TA37 PO
[2024-11-05 14:11] VITALS: BP 164/73; PULSE 98; RESP 16; TEMP 98.3; O2SAT 99
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
[2024-11-05] MEDS: acetaMINOPHEN 325 MG TAB PO ONE (15:52)
[2024-11-05] MEDS: ORPHENADRINE 60MG/2ML IM ONE (15:53)
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
== END 2024-11-05 16:55 | disposition home or self-care (01) ==
LOC: EDH 14:08
DX: M54.2 Cervicalgia (principal); E03.9 Hypothyroidism, unspecified; I10 Essential (primary) hypertension; Z79.82 Long term (current) use of aspirin; Z79.899 Other long term (current) drug therapy; Z88.1 Allergy status to other antibiotic agents; Z88.5 Allergy status to narcotic agent; Z88.6 Allergy status to analgesic agent; Z88.8 Allergy status to other drugs, medicaments and biological substances; Z90.5 Acquired absence of kidney; Z90.710 Acquired absence of both cervix and uterus; Z91.041 Radiographic dye allergy status; V89.2XXA Person injured in unspecified motor-vehicle accident, traffic, initial encounter; Y93.89 Activity, other specified; Y92.488 Other paved roadways as the place of occurrence of the external cause; Y99.8 Other external cause status
CPT/HCPCS: 72040; 99283; J2360

== ENCOUNTER 2024-12-31 05:45 | Day surgery (SDC) | payer OTHER ==
[~2024-12-31] VITALS: Ht 152.4 cm; Wt 55.3 kg
[2024-12-31] VITALS (10 sets, daily range): BP systolic 104–129; BP diastolic 37–67; PULSE 53–81; RESP 15–53; TEMP 97.3–97.6
[~2024-12-31 05:45] MED LIST changes: -ALBU0.63 IH; -AMLO-257 PO; +AMLO-258 PO; -FLUT1BLS3 IH; -FLUT9.9S16 NS; +HYDR25TA PO; -HYDR50TA37 PO; -LEVO750T68 PO; -LORA10TA7 PO; -PANT20TA18 PO
[2024-12-31] MEDS: 0.9%NACL 1000ML 1,000 ML IV ONE (06:55)
[2024-12-31] MEDS ORDERED: proPOFol 10 MG/ML 20ML VIAL IV ONE (07:53)
== END 2024-12-31 08:55 | disposition home or self-care (01) ==
LOC: DAH 05:45 → ENDO 05:45
PROVIDERS: ATTEND Internal Medicine Gastroenterology
DX: R13.10 Dysphagia, unspecified (principal); K22.2 Esophageal obstruction; K21.9 Gastro-esophageal reflux disease without esophagitis; K29.50 Unspecified chronic gastritis without bleeding; K44.9 Diaphragmatic hernia without obstruction or gangrene; I10 Essential (primary) hypertension; F32.A Depression, unspecified; E03.9 Hypothyroidism, unspecified; Z86.73 Personal history of transient ischemic attack (TIA), and cerebral infarction without residual deficits; Z79.82 Long term (current) use of aspirin; Z79.890 Hormone replacement therapy; Z88.5 Allergy status to narcotic agent; Z88.1 Allergy status to other antibiotic agents; Z79.899 Other long term (current) drug therapy; Z98.890 Other specified postprocedural states
CPT/HCPCS: 43239; 43248; J7030 ×2; J2704; A4620; A4215; A4223; A7002; A4222; A4221; A4663; A4606; J3490

== ENCOUNTER → 2025-02-03 | Outpatient (CLI) | payer OTHER ==
--- NOTE | 2025-02-03 13:24 | HMCIMG ---
ULTRASOUND ABDOMEN COMPLETE INDICATION: Left upper abdominal pain COMPARISON: None. FINDINGS: The liver is normal in size and echogenicity; no focal lesion demonstrated. Main portal vein is patent, and normal direction of vascular flow demonstrated. Liver length is measured at 12.4 cm. The common bile duct caliber measures 4.0 mm. 0.7 cm hypoechoic nonshadowing lesion demonstrated along the dependent gallbladder wall without pericholecystic fluid. No sonographic Borges's sign elicited by the ultrasound screw machine operator. Wall thickness measures 2.0 mm. The spleen is normal in size and echotexture. The spleen measures 9.0 cm. Visible portions of the pancreas appear unremarkable. The right kidney measures 8.5 x 3.9 x 4.2 cm,and is normal in echogenicity, without evidence for hydronephrosis or shadowing stones. The left kidney measures 7.0 x 4.2 x 4.0 cm,and is normal in echogenicity, without evidence for hydronephrosis or shadowing stones. Partial inferior left nephrectomy changes. Mild calcific plaque along the abdominal aortic otero. Visible portions of the inferior vena cava are within normal limits. No free fluid demonstrated. IMPRESSION: Subcentimeter gallbladder "sludgeball" or adherent noncalcific stone favored over polyp, but no evidence for cholecystitis. Mild arterial sclerotic disease as described.
== END | disposition home or self-care (01) ==
LOC: RAH 09:16
PROVIDERS: ATTEND Internal Medicine
DX: K82.8 Other specified diseases of gallbladder (principal); K76.89 Other specified diseases of liver; R10.12 Left upper quadrant pain; I70.0 Atherosclerosis of aorta; Z90.5 Acquired absence of kidney
CPT/HCPCS: 76700

== ENCOUNTER → 2025-03-02 | Outpatient (CLI) | payer OTHER ==
--- NOTE | 2025-03-02 13:49 | HMCIMG ---
CT MAXILLOFACIAL W/O CONTRAST Indication: CHRONIC SINUSITIS Technique: Multiple thin section axial images were performed through the face and paranasal sinuses. Coronal reconstructions were performed in soft tissue and bone windows, as well as sagittal reconstructions. CT Dose Index (CTDI): 22.11 mGy Dose Length Product (DLP): 450.8 total mGy Findings: Paranasal sinuses are unremarkable. There is no evidence of facial fracture. Visualized soft tissues are unremarkable. Visualized intracranial contents are unremarkable. Impression: No acute abnormality of the face. This study was performed using dose reduction techniques to include automated exposure control and/or adjustment of the mA and/or kV according to patient size.
== END | disposition home or self-care (01) ==
LOC: RAH 13:11
PROVIDERS: ATTEND Otolaryngology Plastic Surgery within the Head & Neck
DX: J32.9 Chronic sinusitis, unspecified (principal)
CPT/HCPCS: 70486

== ENCOUNTER 2025-06-10 19:15 | Emergency (ER) | payer OTHER ==
[~2025-06-10] VITALS: Ht 152.4 cm; Wt 55.3 kg
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
--- NOTE | 2025-06-10 21:01 | NUR ---
C-COLLAR APPLIED AT THIS TIME PER PROVIDER'S ORDERS
--- NOTE | 2025-06-10 23:17 | HMCIMG ---
EXAM: CT Cervical Spine Without IV Contrast CLINICAL HISTORY: Pain. TECHNIQUE: Thin collimated axial CT images of the cervical spine were obtained with sagittal and coronal reformatted images also submitted. CT scan is done according to ALARA (As Low As Reasonably Achievable). CONTRAST: None. COMPARISON: X-ray cervical spine of the same date. CT cervical spine dated 05/14/2014. FINDINGS: No acute fracture. Loss of the normal lordotic curvature. Normal vertebral body heights. Diffuse osteopenia. Moderate cervical spondylosis with multilevel marginal osteophytes, facet arthropathy, endplate changes and degenerative disc space reduction most pronounced at C6-C7. Grade I degenerative anterolisthesis of C4 over C5 and C5 over C6. The surrounding soft tissues are unremarkable. Level by level disease is present as follows: C1-C2: Moderate osteoarthritis. C2-C3: No disc bulge or herniation. No neural foraminal, lateral recess or spinal canal stenosis. C3-C4: 3 mm posterior disc osteophyte complex bulge. Bilateral facet hypertrophy. Moderate bilateral lateral recess and neural foraminal stenosis. No spinal canal stenosis. C4-C5: 2-3 mm posterior disc osteophyte complex bulge. Bilateral facet joint hypertrophy, more pronounced on the left side. Mild right and moderate left lateral recess and neural foraminal stenosis. No spinal canal stenosis. C5-C6: 2-3 mm posterior disc osteophyte complex bulge. Bilateral facet joint hypertrophy. Moderate right and severe left lateral recess and neural foraminal stenosis. No spinal canal stenosis. C6-C7: 3 mm posterior disc osteophyte complex bulge. Bilateral facet hypertrophy. Moderate bilateral lateral recess and neural foraminal stenosis. No spinal canal stenosis. C7-T1: No disc bulge or herniation. No neural foraminal, lateral recess or spinal canal stenosis. Right internal carotid artery stent in place. IMPRESSIONS: Straightening of the normal lordotic curvature. Diffuse osteopenia. Moderate cervical spondylosis with multilevel marginal osteophytes, facet arthropathy, endplate changes and degenerative disc space reduction most pronounced at C6-C7. Grade I degenerative anterolisthesis of C4 over C5 and C5 over C6. Posterior disc osteophyte complex bulges from C3-C4 through C6-C7. Moderate bilateral lateral recess and neural foraminal stenosis at C3-C4 and C6-C7. Mild right and moderate left lateral recess and neural foraminal stenosis at C4-C5. Moderate right and severe left lateral recess and neural foraminal stenosis at C5-C6. No spinal canal stenosis. Right internal carotid artery stent in place. Compared with the prior CT cervical spine dated 05/14/2014, there is an interval worsening of the cervical spondylosis and multilevel lateral canal stenosis, with interval placement of right internal carotid artery stent. No significant interval change from the x-ray cervical spine of the same date. /[place]
[2025-06-10 23:40] VITALS: BP 149/88; PULSE 77; RESP 18; TEMP 98.7; O2SAT 99
== END 2025-06-10 23:43 | disposition home or self-care (01) ==
LOC: EDH 19:15
DX: I16.0 Hypertensive urgency (principal); M43.12 Spondylolisthesis, cervical region; M47.812 Spondylosis without myelopathy or radiculopathy, cervical region; I10 Essential (primary) hypertension; E03.9 Hypothyroidism, unspecified; Z79.82 Long term (current) use of aspirin; Z79.899 Other long term (current) drug therapy; Z85.528 Personal history of other malignant neoplasm of kidney; Z88.1 Allergy status to other antibiotic agents; Z88.5 Allergy status to narcotic agent; Z88.6 Allergy status to analgesic agent; Z88.8 Allergy status to other drugs, medicaments and biological substances; Z90.5 Acquired absence of kidney; Z90.710 Acquired absence of both cervix and uterus; V89.2XXA Person injured in unspecified motor-vehicle accident, traffic, initial encounter; Y93.89 Activity, other specified; Y92.89 Other specified places as the place of occurrence of the external cause; Y99.8 Other external cause status
CPT/HCPCS: 70450; 72040; 72125; 99285